=== PATIENT | male | born 1970 | race Caucasian/White ===

== ENCOUNTER 2023-11-22 14:40 | Emergency (ER) | payer BC, SELFPAY ==
[2023-11-22] VITALS (31 sets, daily range): BP systolic 123–216; BP diastolic 76–137; PULSE 85–101; TEMP 36.8; O2SAT 90–100; BMI 37.0
--- NOTE | 2023-11-22 15:04 | ECG_ITS ---
[facility] Test Date: 2023-11-22 Pat Name: KOLE VILLALBA Department: Room: - Gender: Male Appointment Coordinator: : 1970 Requested By: [id number] Order Number: [id number] Reading MD: POLA NEWBY Measurements Intervals [place] Rate: 85 P: 54 ME: 170 QRS: -6 QRSD: 100 T: 61 QT: 372 QTc: 415 Interpretive Statements 1100 Sinus rhythm 5222 Moderate voltage criteria for LVH, may be normal variant 9130 borderline ECG No previous ECG available for comparison Electronically Signed On 11-23-2023 19:16:27 EDT by POLA NEWBY
--- NOTE | 2023-11-22 15:04 | XR_ITS ---
The [address] [address] Patient Name: KOLE VILLALBA MRN: [id number] date: 1970 Sex: M Assigned Patient Location: ER Current Patient Location: ER Accession/Order Number: [id number] Exam Date: 11/22/2023 15:05 Report Date: 11/22/2023 15:31 At the request of: YOVANY FAIRBANKS Procedure: XR chest 1V EXAMINATION: XR chest 1V HISTORY: HTN COMPARISON: No relevant comparison available. FINDINGS: LUNGS: No infiltrate, pneumothorax, or pleural effusion. MEDIASTINUM: No abnormal widening. BOWEL GAS PATTERN: Non-obstructed. FREE AIR: None. CALCIFICATIONS: None significant. BONES: No fracture or visible bone lesion. OTHER: Negative. XR/XR chest 1V IMPRESSION: 1. No acute cardiac pulmonary process. Electronically authenticated by: ZAINAB STAFFORD Date: 11/22/2023 15:31
[2023-11-22 15:22] LABS: Basophils Percent Auto 0.2 % (0.2-2.0); Eosinophils Absolute Auto 0.1 10^3/uL (0.0-0.7); Hematocrit 46.1 % (42.0-54.0); Hemoglobin 15.5 g/dL (14.0-18.0); Immature Granulocytes Abs Auto 0.02 10^3/uL (0.00-0.03); Immature Granulocytes Pct Auto 0.2 % (0.0-0.5); Lymphocytes Absolute Auto 2.5 10^3/uL (1.2-3.8); Lymphocytes Percent Auto 30.1 % (20.5-60.0); Mean Corpuscular HGB Conc 33.6 g/dL (29.9-35.2); Mean Corpuscular Hemoglobin 28.2 pg (25.9-34.0); Mean Corpuscular Volume 83.8 fL (80.0-94.0); Monocytes Absolute Auto 0.5 10^3/uL (0.3-0.8); Monocytes Percent Auto 5.6 % (1.7-12.0); Neutrophils Absolute Auto 5.2 10^3/uL (1.4-6.5); Neutrophils Percent Auto 62.9 % (43.0-75.0); Platelet Count 244 10^3/uL (150-450); White Blood Count 8.2 10^3/uL (4.0-11.0)
[2023-11-22] MEDS: HYDRALAZINE HCL 20 MG/ML VIAL 10 MG IVP (15:24)
--- NOTE | 2023-11-22 15:32 | ED_ITS ---
HPI HPI - General Adult General Chief complaint: Chest Pain Stated complaint: HIGH BLOOD PRESSURE Time Seen by Provider: 11/22/23 14:50 Source: patient Mode of arrival: walk-in Limitations: no limitations History of Present Illness HPI narrative: 53-year-old male presents to the emergency department with friend with report of elevated blood pressure. Patient states that he and his friend were, messing around, with a blood pressure machine and when they noted his blood pressure to be very elevated, came in for further evaluation. Patient states he has been tired over the past several days, but otherwise voices no other complaints. Denies headache, chest pain, shortness of breath, lightheadedness, dizziness. History of hypertension. He is not on any medications. Denies smoking, drinking alcohol. Quality:?as above Severity:?moderate Timing:?discovered today, unknown how long this has been going Context: Normal setting and activity? Modifying factors: none Associated symptoms: As above Related Data Previous Rx's ?Medication ?Instructions ?Recorded amoxicillin 875 mg-potassium 1 tab PO BID 10 days #20 tabs 11/22/23 clavulanate 125 mg tablet lisinopril 20 1 tab PO DAILY #30 tabs 11/22/23 mg-hydrochlorothiazide 12.5 mg tablet (Zestoretic) Allergies Allergy/AdvReac Type Severity Reaction Status Date / Time No Known Drug Allergies Allergy Verified 11/22/23 14:49 Opioid HPI Opioid Management Most Recent Opioid Data: No Data to Display Review of Systems ROS Narrative CONST: + fatigue. Denies fever, chills HENT: Denies congestion, sore throat EYES: Denies eye redness, visual disturbance RESP: Denies cough, shortness of breath CV: Denies chest pain, palpitations GI: Denies abd pain, nausea, vomiting : Denies dysuria, flank pain MS: Denies back pain, myalgias SKIN: Denies color change, rash NEURO: Denies numbness, weakness PSYCHIATRIC: Denies confusion, agitation Exam Narrative Exam Narrative: Vital signs reviewed Nurses notes noted CONST: Nontoxic, well appearing, well nourished, in no distress.? No diaphoresis.?? HENT: normocephalic, atraumatic, moist mucous membrane, no abnormalities of the nose noted, hearing normal EYES: normal appearing conjunctiva, no apparent discharge bilat NECK: normal appearance CV: normal rate, regular rhythm, no murmur RESP: normal effort, speaking in complete sentences. Lung sounds clear and equal bilat.? No wheezes, rales, rhonchi : no CVA tenderness MS: no edema, tenderness SKIN: no pallor NEURO: A&Ox 3, no focal findings PSYCH: normal mood, affect Constitutional Vital Signs, click to edit/add: Last Vital Signs Temp 98.2 F 11/22/23 14:50 Pulse 98 H 11/22/23 17:40 Resp 18 11/22/23 14:50 BP 176/104 H 11/22/23 17:30 Pulse Ox 95 11/22/23 17:40 O2 Del Method Room Air 11/22/23 14:50 Course Reevaluation(s) Reevaluation #1: improved Time: 17:45 Vital Signs Vital signs: Vital Signs Blood Pressure 123/76 11/22/23 14:27 Temperature 98.2 F 11/22/23 14:50 Pulse Rate 98 H 11/22/23 17:40 Respiratory Rate 18 11/22/23 14:50 Blood Pressure 176/104 H 11/22/23 17:30 Pulse Oximetry 95 11/22/23 17:40 Oxygen Delivery Method Room Air 11/22/23 14:50 Medical Decision Making [facility] Narrative Medical decision making narrative: This is a pleasant 53-year-old gentleman who presented to the emergency department with friend with concern about his blood pressure. Denies having any signs or symptoms prior to checking his blood pressure. When they noted to be elevated, came in for further evaluation. Denies prior history of hypertension. Is not currently on any medicines. Denies any chest pain, shortness of breath. On arrival, afebrile, patient hypertensive 216/137. On exam, nontoxic, well-appearing patient in no distress. Heart regular rate and rhythm. Lung sounds clear and equal bilaterally. No peripheral edema. EKG reveals no acute or concerning changes. Labs reveal no leukocytosis, anemia, thrombocytopenia, electrolyte imbalance, renal impairment. LFTs unremarkable. Patient was consistently high despite multiple readings. Initially given dose of hydralazine. This gave some improvement to the blood pressure, but was still in a region of hypertensive urgency. Second dose of hydralazine was ordered, but patient's blood pressure further improved. He was given dose of lisinopril, hydrochlorothiazide. His blood pressure went up again and he was given dose of clonidine. Blood pressure stabilized (permissible, as we did not want to drop his blood pressure too fast given the unknown timing) and patient remained asymptomatic. Denies having any lightheadedness. Likely hypertension, elevated blood pressure, new diagnosis based on history and physical Endorgan injury less likely based on laboratory evaluation. Patient denies any headache, lightheadedness that would raise concern about intracranial process such as hemorrhagic CVA, aneurysm. He is neurologically intact. He is ambulatory. Disposition ? The patient was discharged. Plan: Patient will be discharged to home. Condition at time of disposition: stable and improved ? Advised to follow up with primary provider. Advised to return for any worsening and/or development of new, concerning signs or symptoms PLEASE NOTE: Portions of the medical record may have been produced using electronic lead housekeeper and may contain errors with respect to translation of words which may not have been identified prior to finalization of the chart. Medical Records Medical records reviewed: Yes I reviewed the patient's medical records Lab Data Lab results reviewed: Yes I reviewed the patient's lab results Labs: Lab Results 11/22/23 Range/Units 14:55 WBC 8.2 (4.0-11.0) 10^3/uL RBC 5.50 (4.70-6.10) 10^6/uL Hgb 15.5 (14.0-18.0) g/dL Hct 46.1 (42.0-54.0) % MCV 83.8 (80.0-94.0) fL MCH 28.2 (25.9-34.0) pg MCHC 33.6 (29.9-35.2) g/dL RDW 13.0 (11.0-15.0) % Plt Count 244 (150-450) 10^3/uL MPV 9.0 L (9.5-13.5) fL Neut % (Auto) 62.9 (43.0-75.0) % Lymph % (Auto) 30.1 (20.5-60.0) % [place] % (Auto) 5.6 (1.7-12.0) % Eos % (Auto) 1.0 (0.9-7.0) % Baso % (Auto) 0.2 (0.2-2.0) % Neut # (Auto) 5.2 (1.4-6.5) 10^3/uL Lymph # (Auto) 2.5 (1.2-3.8) 10^3/uL [place] # (Auto) 0.5 (0.3-0.8) 10^3/uL Eos # (Auto) 0.1 (0.0-0.7) 10^3/uL Baso # (Auto) 0.0 (0.0-0.1) 10^3/uL Abs Immat Gran (auto) 0.02 (0.00-0.03) 10^3/uL Imm/Tot Granulo (auto) 0.2 (0.0-0.5) % Sodium 142 (136-145) mmol/L Potassium 4.1 (3.5-5.1) mmol/L Chloride 105 (98-107) mmol/L Carbon Dioxide 26.6 (21.0-32.0) mmol/L Anion Gap 14.5 BUN 19.0 H (7.0-18.0) mg/dL Creatinine 0.95 (0.70-1.30) mg/dL Est GFR ( Amer) >60 (>=60) Est GFR (Non-Af Amer) >60 (>=60) BUN/Creatinine Ratio 20.0 Glucose 110 H (74-106) mg/dL Calcium 8.7 (8.5-10.1) mg/dL Magnesium 2.0 (1.8-2.4) mg/dL Total Bilirubin 0.4 (0.2-1.0) mg/dL AST 18 (15-37) U/L ALT 23 (16-63) U/L Alkaline Phosphatase 127 H (46-116) U/L Total Protein 7.5 (6.4-8.2) g/dL Albumin 3.8 (3.4-5.0) g/dL Globulin 3.7 g/dL Albumin/Globulin Ratio 1.0 ECG Data Attestation: I personally reviewed and interpreted this ECG as follows: (EKG performed at 1448 hrs. reveals sinus rhythm at 85 bpm. There is some criteria met for LVH. No STEMI. No other acute or concerning changes.) Discharge Plan Discharge Stand Alone Forms: Portal Instructions Chief Complaint: Chest Pain Clinical Impression: Elevated blood pressure reading, General weakness, Acute left otitis media Patient Disposition: Home, Self-Care Time of Disposition Decision: 17:46 Condition: Good Mode of Transportation: Private Vehicle Prescriptions / Home Meds: New lisinopril-hydrochlorothiazide [Zestoretic] 20-12.5 mg tablet 1 tab PO DAILY Qty: 30 0RF amoxicillin-pot clavulanate 875-125 mg tablet 1 tab PO BID 10 Days Qty: 20 0RF Print Language: Kinyarwanda Instructions: Hypertension (ED) Referrals: Ubaldo Rogers MD [Physician] - 1 week Discharge Date/Time: 11/22/23 18:06
[2023-11-22 15:37] LABS: Alanine Aminotransferase 23 U/L (16-63); Albumin Level 3.8 g/dL (3.4-5.0); Alkaline Phosphatase 127 U/L (46-116); Anion Gap 14.5; Aspartate Amino Transferase 18 U/L (15-37); Bilirubin Total 0.4 mg/dL (0.2-1.0); Calcium 8.7 mg/dL (8.5-10.1); Carbon Dioxide 26.6 mmol/L (21.0-32.0); Chloride 105 mmol/L (98-107); Estimated GFR (African America >60 (>=60); Estimated GFR (Non-African Ame >60 (>=60); Globulin 3.7 g/dL; Glucose 110 mg/dL (74-106); Potassium 4.1 mmol/L (3.5-5.1); Sodium 142 mmol/L (136-145); Total Protein 7.5 g/dL (6.4-8.2)
[2023-11-22] MEDS: LISINOPRIL/HYDROCHLOROTHIAZIDE 20-12.5 MG TABLET 1 TAB PO (16:46)
[2023-11-22] MEDS: CLONIDINE HCL 0.1 MG TABLET 0.100000000000000006 MG PO (17:41)
== END 2023-11-22 18:06 | disposition home or self-care (01) ==
PROVIDERS: Physician Assistant; Emergency Provider Emergency Medicine
DX: I10 Essential (primary) hypertension (principal); R53.1 Weakness; H66.92 Otitis media, unspecified, left ear
CPT/HCPCS: 36415; 71045; 80053; 83735; 85025; 93005; 96374; 99285